=== PATIENT | male | born 1945 | race Caucasian/White ===

== ENCOUNTER → 2017-09-07 10:54 | Outpatient (CLI) | payer MEDICARE, SELFPAY ==
[2017-09-07 11:02] LABS: Microscopic, Urine URINE MICROSCOPIC (MICROSCOPIC)
[2017-09-07 11:09] LABS: Appearance,Urine CLEAR (Clear); Bilirubin,Urine Negative (Negative); Blood, Urine Negative (Negative); Color,Urine YELLOW (Yellow); Glucose,Urine (UA) Negative (Negative); Ketones,Urine Negative (Negative); Leukocyte Esterase,Urine Negative (Negative); Nitrate,Urine Negative (Negative); Protein,Urine 100 (Negative); Urobilinogen,Urine 0.2 EU/dl (0.2)
[2017-09-07 11:28] LABS: Bacteria,Urine 1+ /lpf
[2017-09-07 11:31] LABS: Total Protein,Urine Random 252.2 mg/dL (0.0-11.9)
== END ==
PROVIDERS: PCP Internal Medicine Nephrology; Visit Provider Internal Medicine Nephrology
DX: N18.4 Chronic kidney disease, stage 4 (severe) (principal)
CPT/HCPCS: 81001; 84155

== ENCOUNTER → 2017-09-10 13:46 | Outpatient (POV) | payer MEDICARE, SELFPAY | PROVIDERS: PCP Internal Medicine Nephrology; Visit Provider Internal Medicine Nephrology | DX: Z00.00 Encounter for general adult medical examination without abnormal findings (principal) ==

== ENCOUNTER → 2017-12-03 12:37 | Outpatient (POV) | payer MEDICARE, SELFPAY | PROVIDERS: Visit Provider Internal Medicine Nephrology | DX: Z00.00 Encounter for general adult medical examination without abnormal findings (principal) ==

== ENCOUNTER → 2018-01-24 08:42 | Outpatient (CLI) | payer MEDICARE, MEDICAID, SELFPAY ==
--- NOTE | 2018-01-24 08:45 | AS_ITS ---
Renal Arterial Duplex Indications: 405.91 Unspecified renovascular hypertension. IMPRESSIONS 1. The right renal artery appears normal. 2. The left renal artery appears highly resistive. No evidence of renal artery stenosis, bilaterally. Complete renal arterial duplex. Duplex scan and Doppler flow study including spectral analysis, color and vee scale imaging. Height: Height: 170.2cm. Height: 67in. Weight: Weight: 84.4kg. Weight: 185.6lb. Body mass index: BMI: 29.1kg/m^2. Body surface area: BSA: 2.02m^2. Location: Vascular laboratory. Patient status: Outpatient. Tables: Arterial flow: + +--------+--------+ + Location V sys V ed Flow analysis + +--------+--------+ + Right renal - proximal 92cm/s 14.2cm/s + +--------+--------+ + Right renal - mid 90cm/s 14.7cm/s + +--------+--------+ + Right renal - distal 94.8cm/s 17.6cm/s + +--------+--------+ + Left renal - proximal 197cm/s 24.8cm/s + +--------+--------+ + Left renal - mid 95.6cm/s 17.7cm/s + +--------+--------+ + Left renal - distal 62.5cm/s 14.2cm/s High resistivity + +--------+--------+ + Left renal - Origin 210cm/s 26cm/s High resistivity + +--------+--------+ + Aorta - mid 122cm/s 20cm/s + +--------+--------+ + Artery mapping: + +--------+ Location Diameter + +--------+ Abdominal aorta - mid 2.2mm + +--------+ Renal anatomy: + +------+------+ Left Right + +------+------+ Long axis 10.4cm 11.3cm + +------+------+ Short axis 5.8cm 5.5cm + +------+------+ Velocity ratios: + +-----+ V sys + +-----+ Right renal/aortic 0.8 + +-----+ Left renal/aortic 1.7 + +-----+ (Report amended ) Electronically signed by: Deepak Curry [id number]
== END ==
PROVIDERS: PCP Emergency Medicine; Visit Provider Internal Medicine
DX: N18.9 Chronic kidney disease, unspecified (principal); I10 Essential (primary) hypertension
CPT/HCPCS: 93976

== ENCOUNTER → 2018-01-25 06:16 | Outpatient (CLI) | payer MEDICARE, MEDICAID, SELFPAY ==
--- NOTE | 2018-01-25 06:18 | NM_ITS ---
History and Indications: Chest pain, shortness of breath, hypertension, hyperlipidemia. Procedure: Patient received a 0.4 mg of Lexiscan, resting heart rate was 63 beats prominent, resting blood pressure 173/84, with Lexiscan maximum heart rate achieved was 79 bpm is less than 85% of the maximum predicted heart rate and a blood pressure was 142/71. Lexiscan no symptoms recorded. Electrocardiogram: Resting electrocardiogram showed sinus rhythm, with Lexiscan there is less than 1.[address] segment depression noted from the baseline EKG. The EKG portion of the Lexiscan Myoview is nondiagnostic. Cardiac stress and resting SPECT images: Cardiac stress and rest SPECT images were obtained using technetium 99 Myoview 29.9 mCi at rest and 10.8 mCi at stress, gated SPECT further analysis of segmental wall motion and calculation of the ejection fraction also done. Cardiac stress and rest SPECT images show a fixed defect in the inferior wall with normal contractility in the gated SPECT is likely secondary to soft tissue attenuation, no reversible ischemia seen. Computer derived ejection fraction is 54% with no obvious regional wall motion abnormality. Right ventricle is normal size and contractility. Conclusion: 1. The EKG portion of the Lexiscan Myoview is nondiagnostic. 2. No obvious scintigraphic evidence of reversible ischemia seen, computer derived ejection fraction is 54% with no obvious regional wall motion abnormality. Right ventricle is normal size and contractility.
--- NOTE | 2018-01-25 06:18 | CA_ITS ---
PROCEDURE: 2-D M-mode and color Doppler study INDICATIONS FOR THE TEST: Chest pain COPD Heart Murmur Tobacco Smoking Palpitations Fatigue Syncope Edema HypertensionXDiabetes MellitusX Rheumatic Fever SOBXDOE ObesityXHyperlipidemiaX Family History HD Additional History CKD,ABN EKG PATIENT INFORMATION HEIGHT: 68 WEIGHT:228 GENDER: Male B/P:195/71 2-D/M-MODE INTERPRETATION: 2-D MEASUREMENTS OBSERVED VALUES IN CMS Right Ventricular Dimension (RVDd) 1.4 Interventricular Septum (Thickness)(IVsd) 1.2 Left Ventricular Internal Dimensions(LVIDd) 4.4 Left Ventricular Posterior Wall (Thickness)(LVPWd) 1.2 Aortic Root 3.3 Aortic Cusp Separation 1.9 Left Atrial Dimensions (LAD) 3.9 2D 1. Left atrium is mildly enlarged, left ventricle is normal size, mild concentric left ventricular hypertrophy, visually estimated ejection fraction 55% with no obvious regional wall motion abnormality. 2. The right atrium and right ventricle are normal size and contractility. 3. The aortic valve is minimally thickened and fibrosed. 4. The mitral and tricuspid valve leaflets are minimally thickened. 5. The pulmonic valve is poorly visualized. 6. No significant pericardial effusion noted. DOPPLER INTERROGATION: Doppler interrogation of the aortic, mitral and tricuspid valvular presence of mild mitral and tricuspid regurgitation, tricuspid regurgitant jet velocity is insufficient for calculation of the right ventricular systolic pressure, grade 1 diastolic dysfunction seen with tissue Doppler evidence of raised left atrial pressure. CONCLUSION: 1. Mildly enlarged left atrium, normal left ventricular size, mild concentric left ventricular hypertrophy, visually estimated ejection fraction 55% with no obvious regional wall motion abnormality, grade 1 diastolic dysfunction seen with tissue Doppler evidence of raised left atrial pressure. 2. Mild mitral and tricuspid regurgitation 3. No significant pericardial effusion noted.
--- NOTE | 2018-01-25 10:54 | HMH.ITSHM ---
lasix enulose norvasc doxazosin ferrous sulfate haldol lisinopril zocor amlodipine trazodone
== END ==
PROVIDERS: PCP Emergency Medicine; Visit Provider Internal Medicine
DX: R94.31 Abnormal electrocardiogram [ECG] [EKG] (principal)
CPT/HCPCS: 78452; 93017; 93306; A9502; J2785

== ENCOUNTER → 2018-03-04 13:27 | Outpatient (POV) | payer MEDICARE, SELFPAY | PROVIDERS: Visit Provider Internal Medicine Nephrology | DX: Z00.00 Encounter for general adult medical examination without abnormal findings (principal) ==

== ENCOUNTER → 2018-06-03 14:58 | Outpatient (POV) | payer MEDICARE, MEDICAID, SELFPAY | PROVIDERS: PCP Emergency Medicine; Visit Provider Internal Medicine Nephrology | DX: Z00.00 Encounter for general adult medical examination without abnormal findings (principal) ==

== ENCOUNTER → 2018-09-03 08:30 | Outpatient (CLI) | payer MEDICARE, MEDICAID, SELFPAY ==
--- NOTE | 2018-09-03 08:41 | XR_ITS ---
XR DEXA axial skeleton HISTORY: ITS.REASON: OSTEODYSTROPHY,HPTH ORDERING PHYSICIAN: Issa Reddy PATIENT AGE: 73 years COMPARISON: None FINDINGS: The BMD measured at the Left femoral neck is 0.981 g/cm squared with a T score of -0.7. This is considered Normal according to the World Health Organization criteria. Fracture risk is Low. Treatment is advised. The density of the L-spine as a T score of 7.7. IMPRESSION: Normal bone density with low fracture risk. Recommend follow-up exam August 2020
== END ==
PROVIDERS: PCP Emergency Medicine; Visit Provider Internal Medicine Nephrology
DX: E21.0 Primary hyperparathyroidism (principal); N25.0 Renal osteodystrophy
CPT/HCPCS: 77080

== ENCOUNTER → 2018-09-23 15:11 | Outpatient (POV) | payer MEDICARE, MEDICAID, SELFPAY | PROVIDERS: Visit Provider Internal Medicine Nephrology | DX: Z00.00 Encounter for general adult medical examination without abnormal findings (principal) ==

== ENCOUNTER → 2018-12-12 15:01 | Outpatient (CLI) | payer MEDICARE, MEDICAID, SELFPAY ==
--- NOTE | 2018-12-12 15:04 | CT_ITS ---
CT chest wo con HISTORY: Right chest wall mass, right clavicle mass ITS.REASON: rt clavicle mass ORDERING PHYSICIAN: Jorge Patel MD PATIENT AGE: 73 years COMPARISON: None Technique: Axial images obtained. Sagittal, and coronal reformatted images are also generated and reviewed. All CT scans at the facility use one or more dose reduction, viz: automated exposure control, ma/kV adjustment per patient size (including targeted exams where dose is matched to indication, i.e. head), or iterative reconstruction technique. FINDINGS: Scattered small nodes are present within the mediastinum. There are extensive coronary artery calcifications with mild cardiomegaly and mild pericardial thickening consistent with small pericardial effusion. The pericardium measures up to 12 mm in thickness anteriorly. Calcified nodes present in the right hilum. There is a medium-sized right pleural effusion and a small left pleural effusion. Consolidation or volume loss is noted in the right middle lobe and there are atelectatic changes in the right lung base. Mild consolidation/atelectatic changes are present in the left lung base posteriorly. There is mild prominence of the soft tissues around both sternoclavicular joints slightly more prominent on the right. This does not appear to be causing any bony destruction and may be related to pannus formation from arthritic changes. There is some minimal osteophyte formation along the medial aspect of the clavicles. There is degenerative disc disease of the thoracic spine with osteophytosis. There is an old left seventh and eighth rib fracture. Upper abdominal images show gallbladder wall thickening. IMPRESSION: 1. 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 The soft tissue prominence may be related to pannus formation arthritic changes. No bony destructive process evident. 2. Bilateral pleural effusions with consolidation or atelectasis in the right middle lobe and left lung base. 3. Cardiomegaly with coronary artery calcification and small pericardial effusion
--- NOTE | 2018-12-12 15:04 | CT_ITS ---
CT soft tissue neck wo con INDICATION: ITS.REASON: rt clavicle mass ORDERING PHYSICIAN: Jorge Patel MD PATIENT AGE: 73 years COMPARISON: None TECHNIQUE: Axial images are obtained without contrast. Sagittal and coronal reformatted images are reviewed as well. All CT scans at the facility use one or more dose reduction, viz: automated exposure control, ma/kV adjustment per patient size (including targeted exams where dose is matched to indication, i.e. head), or iterative reconstruction technique. FINDINGS: Scattered small lymph nodes are present in the neck. There is generalized carotid artery calcification. There are osteoarthritic changes of the sternoclavicular joints on both sides with some bony spurring of the medial clavicle. The patient is somewhat rotated toward the left somewhat accentuating the clavicular prominence on the right. There is increased soft tissue density about both sternoclavicular joints right greater than left consistent with pannus formation. No bony erosive process is evident. No destructive bony lesions. Along the anterior aspect of the right clavicular head at the sternoclavicular joint there is some increased soft tissue density anterior to the head of the clavicle on the right and could be related to some underlying inflammation. The thyroid gland is unremarkable. IMPRESSION: 1. There is hypertrophy of the sternoclavicular joint on both sides with osteoarthritic change and mild osteophyte formation along with mildly prominent pannus formation of the sternoclavicular joints right greater than left. No bony destructive process. No soft tissue mass. 2. There is slight thickening of the subcutaneous tissues anterior to the head of the clavicle possibly related to some underlying inflammation
== END ==
PROVIDERS: PCP Emergency Medicine; Visit Provider Surgery
DX: M89.319 Hypertrophy of bone, unspecified shoulder (principal); M95.8 Other specified acquired deformities of musculoskeletal system
CPT/HCPCS: 70490; 71250

== ENCOUNTER → 2019-01-27 12:44 | Outpatient (POV) | payer MEDICARE, MEDICAID, SELFPAY | PROVIDERS: Visit Provider Internal Medicine Nephrology | DX: Z00.00 Encounter for general adult medical examination without abnormal findings (principal) ==

== ENCOUNTER → 2019-01-29 12:41 | Outpatient (CLI) | payer MEDICARE, MEDICAID, SELFPAY ==
--- NOTE | 2019-01-29 12:44 | FL_ITS ---
FL barium swallow modified: 01/29/2019 12:44 PM CLINICAL HISTORY: Aspiration pneumonia ORDERING PHYSICIAN: Rod Olsen MD PATIENT AGE: 73 years Comparison: None TECHNIQUE: Patient administered varying consistencies of barium contrast, while viewed in lateral position under real-time fluoroscopy with cine recording. FLUOROSCOPY TIME: 2 minutes and 28 seconds The study was performed in conjunction with speech pathologist. Please see that report & recommendations. FINDINGS: Patient was given varying consistencies of barium. There are prominent anterior syndesmophytes at C2-C3 C4-C5 and C6 and C7 consistent with DISH of the cervical spine. These do cause indentation upon the posterior aspect of the esophagus mainly in the C3-C4 area there is vestibular penetration with thin liquids. There is a moderate amount of residue with all consistencies. There was some tracheal aspiration of the residue. IMPRESSION: Deep penetration with thin liquids with moderate residue and tracheal aspiration of the residue. Please see speech pathologist report and recommendations.
--- NOTE | 2019-01-29 13:59 | HMH.SLMBS2 ---
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 Mr. Crespo was given the following consistenices: thins via straw and open cup, nectar, honey, pudding, pureed, and mechanical soft. It was noted Mr. Crespo has premature spillage with mechanical soft resulting in silent aspiration . Pharyngeal Phase Impression Moderate Impairment Pharyngeal Phase Summary Mr. Crespo did exhibit silent aspiration of mechanical soft. Deep penetration with thins, nectar, and honey liquids after fatigue set in. Residue noted with all consistencies, cleared with multiple swallows . Mr. Crespo has a natural chin tuck posture, however this did not improve swallow. At this time, it is recommended Mr. Crespo be placed on pureed/ pudding thick liquids. Medications should be crushed as allowable. Speech/Language MBS Assessment/Goals/Plan Assessment Date of Evaluation: 01/29/19 Evaluation Type Initial Certification Assessment/Problems Dysphagia Does Patient Qualify for Service No Qualify/Failure Comment Diet recommendations made. Follow up with ST at [facility] for appropriateness of therapy. Plan Pt/Guardian verbally ack understanding Yes of dx/prognosis/goals G -code Required Yes G-CODES ST Current Status [id number] ST Current Status Modifier CL-At least 60% but less than 80% impaired, limited or restricted ST Goal Status [id number] ST Goal Status Modifier CL-At least 60% but less than
== END ==
PROVIDERS: PCP Emergency Medicine; Visit Provider Emergency Medicine
DX: J69.0 Pneumonitis due to inhalation of food and vomit (principal)
CPT/HCPCS: 70371; 92611

== ENCOUNTER → 2019-02-25 10:48 | Outpatient (CLI) | payer MEDICARE, MEDICAID, SELFPAY ==
[2019-02-25 11:19] LABS: Basophils # 0.1 K/mm3 (0-0.2); Basophils % 0.6 % (0.1-2.0); Eosinophils # 0.3 K/mm3 (0.0-0.4); Eosinophils % 2.4 % (0.1-12.0); Hemoglobin 11.5 g/dL (14.1-18.0); Lymphocytes # 1.6 K/mm3 (0.7-4.5); Lymphocytes % 13.2 % (10-50); Mean Corpuscular HGB Conc 31.9 g/dL (31.8-35.4); Mean Corpuscular Hemoglobin 28.1 pg (27.0-31.2); Mean Corpuscular Volume 88.1 fl (80-94); Mean Platelet Volume 9.5 fl (7.4-10.4); Monocytes # 0.7 K/mm3 (0.1-1.0); Neutrophils # 9.4 K/mm3 (1.8-7.8); Neutrophils % 77.7 % (37.0-80.0); Platelet Count 214 K/mm3 (142-424); Red Blood Count 4.08 M/mm3 (4.60-6.20); Red Cell Distribution Width 13.7 % (11.5-17.5); White Blood Count 12.1 K/mm3 (4.8-10.8)
[2019-02-25 12:28] LABS: Anion Gap 17.2 mEq/L (5-15); Blood Urea Nitrogen 51 mg/dL (7-18); Calcium 9.3 mg/dL (8.5-10.1); Carbon Dioxide 24 mmol/L (21.0-32.0); Chloride 107 mmol/L (98-107); Estimated Glomerular Filt Rate 15 ml/min (>60); GFR (African American) 18 ML/MIN (>60); Glucose 174 mg/dL (74-106); Potassium 4.2 mmoL/L (3.5-5.1); Sodium 144 mmol/L (136-145)
[2019-02-25 13:23] LABS: Creatinine,Serum 3.94 mg/dL (0.70-1.30)
== END ==
PROVIDERS: Visit Provider Surgery
DX: R13.10 Dysphagia, unspecified (principal); R13.12 Dysphagia, oropharyngeal phase
CPT/HCPCS: 36415; 80048; 85025

== ENCOUNTER 2019-02-26 06:33 | Observation (INO) ==
--- NOTE | 2019-02-26 07:01 | Progress Note ---
[facility] Anesthesia Checklist - Patient Identification Patient Identification: Arm Band, Verbal (Name & ) - Structural Data Admitted From: Home Planned Operative Procedure/s: peg Consent for Planned Operative Procedure(s) Verified: Yes Verified Documents: History and Physical - NPO Status Verified Time NPO: 00:00 - Additional verifications Patient : No Anesthesia Reactions: No Hx Blood Transfusions: No Blood Transfusion Reaction: No Cephalosporin Allergy: No Previous Colonoscopy: No - Cardiovascular Assessment Heart Sounds: S1 & S2 Pulse Strength: Baseline Pulse Rhythm: Regular Peripheral Edema: No - Airway Assessment C-Spine Mobility Assessed: Yes TMJ Mobility Assessed: Yes Dentition: Poor Dentition - Neurological Assessment Level of Consciousness: Awake, Alert, Appropriate Hx Seizures: No Numbness or tingling in extremities: No - Anesthesia Plan Anesthesia Risk discussed: Yes Anesthesia Plan: Verified ASA Class: III Anesthesia Type: MAC [facility] History I have reviewed the patient's past medical history: Yes Medical History: Reports:: Diabetes Mellitus Type 2, Hyperlipidemia, Hypertension, Renal Disease, Urinary Tract Infection Denies:: Diabetes Mellitus Type 1, Internal Pacemaker, Seizures *Have you ever received a pneumonia vaccine?: Yes *Have you received a flu vaccine this season?: No Other Medical History: Reports: Anemia, Cataracts Other Surgeries: Yes: Other. No: Pacemaker Amputation: No Fractures: No - *Social History Smoking Status: Never smoker Alcohol Intake: never Alcohol Intake Frequency:: other Substance Use Type: denies use *Occupational Status:: unemployed, disabled Housing: alf *Travel in the last 8 weeks: None Family Hx:: Unable to obtain
--- NOTE | 2019-02-26 08:09 | Procedure Note ---
- Procedure: Date: 02/26/19 Procedure Performed:: Percutaneous endoscopic gastrostomy tube placement Indications:: Dysphagia Performing Provider:: Jorge Patel MD Referring Provider:: . Sedation:: Monitored anesthesia care Procedure:: After informed consent was obtained the patient was taken to the endoscopy suite. Monitored anesthesia care ensued and he was maintained in a supine position. The gastroscope was advanced. The stomach was insufflated. Visible and pulse and transillumination were noted. The left upper quadrant was prepped and draped in a sterile fashion. After infiltration with local anesthetic a small transverse incision was made at the site of maximum transillumination/impulse. A large-bore Angiocath was placed in position under direct visualization into the gastric lumen through the small transverse incision. The retrieval wire was then placed through the Angiocath and retrieved with snare. The snare/gastroscope was removed and the retrieval wire was secured to the feeding tube. The feeding tube was then pulled into position and secured at 3.5 cm. The gastroscope was reintroduced and the "mushroom" was in good position. No bleeding noted. The device was able to be rotated without difficulty. A drain bag was secured to the feeding tube. An abdominal binder was placed in position and the patient was transferred to recovery in stable condition. Findings:: Good transillumination and impulse Tube secured at 3.5 cm Specimens:: None Recommendations:: The patient will be admitted for observation. See post PEG orders for detail. Complications:: No immediate Estimated blood obtained (mL): 1
--- NOTE | 2019-02-26 10:20 | Pharmacy Consult Notes ---
[facility] Pharmacy VTE Monitoring - Patient Demographics Admission date: 02/26/19 Report Date: 02/26/19 Time: : Allergies/Adverse Reactions: Patient Allergies tuberculin, purified protein deriva Allergy (Verified 02/26/19 06:58) Unknown allergy reaction tuberculin,PPD,multi-puncture Allergy (Verified 02/26/19 06:58) Unknown allergy reaction Height: 1.7 m Weight: 80.91 kg - VTE Risk Was VTE Risk Assessment Performed: Yes VTE Score: 2 VTE Risk Level: Low Risk - Prophylaxis Types of VTE Prophylaxis: IPCS Thigh High Location of Applied Device: Bilateral Lower Extremeties
--- NOTE | 2019-02-27 06:39 | Progress Note ---
Subjective Patient reports: no new complaints Exam Vital signs and Labs for Last 24 Hours: Temp Pulse Resp BP Pulse Ox 98.4 F 81 18 169/82 H 97 02/27/19 04:00 02/27/19 04:00 02/27/19 04:00 02/27/19 04:00 02/27/19 04:00 Laboratory Results - last 24 hr 02/26/19 11:03: POC Glucose 134 H 02/26/19 16:46: POC Glucose 155 H 02/26/19 21:37: POC Glucose 159 H 02/27/19 06:02: POC Glucose 267 H I & O for Last 24 hours: Intake & Output 02/24/19 02/25/19 02/26/19 02/27/19 11:59 11:59 11:59 11:59 Intake Total 572 / 572 Output Total 70 / 70 Balance 502 / 502 Weight 178 lb 6 oz 179 lb - Constitutional no acute distress - *Routine Respiratory Exam Absent: respiratory distress - *Routine Cardiovascular Exam Present: RRR - *Routine Abdominal Exam Present: soft Comments: PEG in place at 3.5 cm. Good rotation. No sign of cellulitis or bleeding. Progress Note: A&P (1) Dysphagia Status: Acute Assessment and plan: Overall, doing well status post PEG placement Discharge home with outpatient follow-up Tube feedings as per primary physician Current Visit: Yes
--- NOTE | 2019-02-27 06:47 | Discharge Summary ---
General - General Admission date:: 02/26/19 Discharge date: 02/27/19 HPI HPI: This is a 73-year-old gentleman seen in consultation for percutaneous endoscopic gastrostomy tube placement. Over the past few months she has had increasing dysphasia and recently failed a modified barium swallow. Hospital Course Hospital Course: The patient underwent placement of a percutaneous endoscopic gastrostomy tube. Please see procedure report for detail. He convalesced well overnight. No sign of bleeding. Tube feeds for initiated without difficulty. On the morning of postprocedural day 1 he was deemed appropriate for discharge. Objective Vital signs: Temp Pulse Resp BP Pulse Ox 98.4 F 81 18 169/82 H 97 02/27/19 04:00 02/27/19 04:00 02/27/19 04:00 02/27/19 04:00 02/27/19 04:00 no acute distress - *Routine HEENT Exam Head: Present: atraumatic - *Routine Neck Exam Absent: tenderness - Routine Chest/Breast/Axilla Exam Chest wall: Absent: tenderness - *Routine Respiratory Exam Absent: respiratory distress - *Routine Cardiovascular Exam Present: RRR - *Routine Abdominal Exam Present: soft. Absent: tenderness - *Routine Extremities Exam Absent: tenderness - Routine Back/Spine/Pelvis Exam Back/Spine: Absent: muscle spasm - *Routine Skin Exam Present: intact - *Routine Neurological Exam Present: alert - Routine Psychiatric Exam Absent: normal thought process Results Labs on day of discharge: Labs from last 24 hours 02/27/19 02/26/19 02/26/19 06:02 21:37 16:46 POC Glucose 267 H 159 H 155 H 02/26/19 11:03 POC Glucose 134 H DS: Diagnosis - Discharge Diagnosis (1) Dysphagia Status: Acute Discharge Plan - Patient Discharge Instructions ACTIVITY: Continue current activity DIET: other (tube feeds as per PCP) Additional Instructions: 1) abdominal binder in place at all times for at least the next 2 weeks 2) tube feeds as per primary care provider Patient Instructions: How to Care for Your PEG Tube, DI for Percutaneous Endoscopic Gastrostomy, DI for Surgical Site Infection, Surgical Site Infection - Follow up Plan Disposition: Home, Self-Residential Medications: Home Medications Medication Instructions Recorded Confirmed Type ferrous sulfate 325 mg (65 mg 325 mg PO DAILY tab 10/26/17 02/26/19 History iron) tablet haloperidol 5 mg tablet 5 mg PO TID tab 10/26/17 02/26/19 History loperamide 2 mg capsule 2 mg PO Q4HP PRN 10/26/17 02/26/19 History Carvedilol [Carvedilol 25mg Tab] 25 mg PO BID 04/26/18 02/26/19 History Acetaminophen 500 mg PO Q6HP PRN 01/03/19 02/26/19 History Cholecalciferol (Vitamin D3) 5,000 unit PO SA 01/03/19 02/26/19 History [Vitamin D3] Insulin Glargine,Hum.rec.anlog 22 unit SQ DAILY 01/03/19 02/26/19 History [Lantus Insulin 100units/mL 10mL vial] Insulin Regular, Human [Humulin R] 0 unit SQ 0630,1630 01/03/19 02/26/19 History Lactulose [Lactulose 10gm/15ml 30 ml PO Q6HP PRN 01/03/19 02/26/19 History Oral Soln] Sevelamer Carbonate [Renvela] 1,600 mg PO AC 01/03/19 02/26/19 History atorvastatin 10 mg tablet 10 mg PO HS 01/22/19 02/26/19 History furosemide 40 mg tablet 20 mg PO BID tab 01/22/19 02/26/19 History hydralazine 25 mg tablet 75 mg PO TID 01/22/19 02/26/19 History lorazepam 0.5 mg tablet 0.25 mg PO BID tab 01/22/19 02/26/19 History Amlodipine Besylate [Norvasc 5mg 5 mg PO DAILY 02/26/19 02/26/19 History tablet] Bisacodyl [Laxative] 5 mg PO HS 02/26/19 02/26/19 History Calcium Carbonate [Calcium] 500 mg PO DAILY 02/26/19 02/26/19 History Guaifenesin/Dextromethorphan 10 ml PO Q6HP PRN 02/26/19 02/26/19 History [Mucus Relief Cough Liquid] Metoclopramide HCl [Reglan 10mg 10 mg PO TID 02/26/19 02/26/19 History Tab] Trazodone HCl 50 mg PO HS 02/26/19 02/26/19 History Prescriptions/Medication Reconciliation: Continued haloperidol 5 mg tablet 5 mg PO TID tab loperamide 2 mg capsule 2 mg PO Q4HP PRN PRN Reason: loose stool atorvastatin 10 mg tablet 10 mg PO HS hydralazine 25 mg tablet 75 mg PO TID lorazepam 0.5 mg tablet 0.25 mg PO BID tab ferrous sulfate 325 mg (65 mg iron) tablet 325 mg PO DAILY tab furosemide 40 mg tablet 20 mg PO BID tab Lactulose [Lactulose 10gm/15ml Oral Soln] 30 ml PO Q6HP PRN PRN Reason: Constipation Sevelamer Carbonate [Renvela] 1,600 mg PO AC Insulin Regular, Human [Humulin R] 0 unit SQ 0630,1630 Insulin Glargine,Hum.rec.anlog [Lantus Insulin 100units/mL 10mL vial] 22 unit SQ DAILY Bisacodyl [Laxative] 5 mg PO HS Calcium Carbonate [Calcium] 500 mg PO DAILY Trazodone HCl 50 mg PO HS Guaifenesin/Dextromethorphan [Mucus Relief Cough Liquid] 10 ml PO Q6HP PRN PRN Reason: Congestion Carvedilol [Carvedilol 25mg Tab] 25 mg PO BID Acetaminophen 500 mg PO Q6HP PRN PRN Reason: PAIN/FEVER Cholecalciferol (Vitamin D3) [Vitamin D3] 5,000 unit PO SA Metoclopramide HCl [Reglan 10mg Tab] 10 mg PO TID Amlodipine Besylate [Norvasc 5mg tablet] 5 mg PO DAILY
== END 2019-02-27 08:20 | disposition home or self-care (01) ==
LOC: 2ND 06:33 → OUTP 06:33 → 2ND 08:20
PROVIDERS: ADMIT Surgery; ATTEND Surgery
CPT/HCPCS: 82962; 96374; G0378

== ENCOUNTER → 2019-05-24 08:44 | Outpatient (CLI) | payer MEDICARE, MEDICAID, SELFPAY ==
[2019-05-24] VITALS (23 sets, daily range): BP systolic 128–176; BP diastolic 41–74; PULSE 55–65; RESP 16–20; TEMP 36.5–37; O2SAT 97–100; BMI 26.9
[2019-05-24 17:35] LABS: Hemoglobin 10.3 g/dL (14.1-18.0)
== END ==
PROVIDERS: PCP Emergency Medicine; Visit Provider Emergency Medicine
DX: D64.9 Anemia, unspecified (principal)
CPT/HCPCS: 36415; 36430; 85014; 85018; 86850; P9016